=== PATIENT | male | born 1995 | race Caucasian/White ===

== ENCOUNTER 2016-07-19 12:32 | Emergency (ER) | payer OTHER ==
[~2016-07-19] VITALS: Wt 78.0 kg
[~2016-07-19 12:32] MED LIST: ACET325T33 PO; AZIT500T3 PO; DIPH28.32; IBUP-1542 PO
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
--- NOTE | 2016-07-19 13:49 | RADRPT ---
PROCEDURE: XR Right Wrist with Navicular View CLINICAL INDICATION: Trauma, swelling, ecchymosis TECHNIQUE: A total of 4 views were submitted. COMPARISON: None FINDINGS: Osseous structures: appear well mineralized and intact with no fracture or destructive process iden tified. Joint spaces: are well maintained with no significant erosions or spurring identified. Soft tissues: appear unremarkable. IMPRESSION: Unremarkable right wrist with navicular view. Physician Beverly Date Time Electronically viewed and signed by Aida Lin Physician on 07/19/2016 13:49 RH/
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
[2016-07-19] MEDS ORDERED: NAPR-260 PO (14:20)
[2016-07-19] MEDS ORDERED: ACET500C5 PO (14:20)
== END 2016-07-19 14:30 | disposition home or self-care (01) ==
LOC: FTE 12:32
DX: S69.91XA Unspecified injury of right wrist, hand and finger(s), initial encounter (principal); Y04.0XXA Assault by unarmed brawl or fight, initial encounter
CPT/HCPCS: 29125; 73110; 73130; Z7502